=== PATIENT | male | born 1955 | race Caucasian/White ===

== ENCOUNTER 2017-04-30 20:25 | Emergency (ER) | payer OTHER ==
[2017-04-30] MEDS ORDERED: OMEGA 3-6-9 11200 MG (20:34)
[2017-04-30] MEDS ORDERED: LISINOPRIL5 M1 PO (20:34)
--- NOTE | 2017-04-30 20:49 | ED CARDIAC/CP/PALPITATIONS ---
History of Present Illness General Chief Complaint: Chest Pain Stated Complaint: CP Source: patient, old records Exam Limitations: no limitations Vital Signs & Intake/Output Vital Signs & Intake/Output Vital Signs Date Time Temp Pulse Resp B/P B/P Pulse O2 O2 Flow FiO2 Mean Ox Delivery Rate 04/30 2307 97.5 50 29 134/78 98 Room Air Room Air 04/30 2107 Room Air 04/30 2039 97.7 48 20 152/92 99 Room Air ED Intake and Output 05/01 0000 04/30 1200 Intake Total 0 Output Total Balance 0 Intake, Oral 0 Patient 151 lb Weight Allergies Coded Allergies: No Known Allergies (04/30/17) Reconcile Medications Fish Oil/Borage/Flax/Om3,6,9#1 (Wiggins 3-6-9 1,200 MG Softgel) 1,200 MG CAPSULE VITAMIN (Reported) Lisinopril 5 MG TABLET 1 TAB PO DAILY HTN (Reported) Triage Note: PER PT CP SINCE YESTERDAY NO ASSOC SYMPTOMS CONSTANT NO SOB NO NV NO DOIAPRHORESIS 10/18 Triage Nurses Notes Reviewed? yes HPI: Patient presents with substernal pain to his upper chest. The pain has been intermittent since yesterday. Patient states on one stay he was pulling something at home and felt like a muscle pull in the left side of his chest. Patient states that pain slowly resolved but then this new pain started yesterday. The pain comes on and last a few minutes before resolving on its own. There is no radiation. While he has the pain he states that it is a 6 out of 10 but then it goes down to a 0 out of 10. There is no radiation. There are no aggravating or mitigating factors. There is no shortness of breath. Patient states he runs 4 miles a day and wasn't able to run yesterday and today without any difficulty. Patient checked his blood pressure this evening and found out it was high so he became nervous between the high blood pressure and chest pain today comes in for evaluation. Patient is currently asymptomatic. Patient denies any headache or blurry vision. There is no nausea or vomiting. Past History Travel History Traveled to [place] past 21 day No Medical History Any Pertinent Medical History? see below for history Neurological: NONE EENT: NONE Cardiovascular: hypertension Respiratory: NONE Gastrointestinal: NONE Hepatic: NONE Renal: NONE Musculoskeletal: NONE Psychiatric: NONE Endocrine: NONE Surgical History Surgical History: non-contributory Psychosocial History What is your primary language Frisian Tobacco Use: Never used ETOH Use: denies use Illicit Drug Use: marijuana Family History Hx Contributory? No Review of Systems Review of Systems Constitutional: Reports: no symptoms. EENTM: Reports: no symptoms. Respiratory: Reports: no symptoms. Cardiovascular: Reports: see HPI, chest pain. GI: Reports: no symptoms. Genitourinary: Reports: no symptoms. Musculoskeletal: Reports: no symptoms. Skin: Reports: no symptoms. Neurological/Psychological: Reports: no symptoms. Hematologic/Endocrine: Reports: no symptoms. Immunologic/Allergic: Reports: no symptoms. All Other Systems: Reviewed and Negative Physical Exam Physical Exam General Appearance: well developed/nourished, alert, awake, mild distress Head: atraumatic, normal appearance Eyes: Bilateral: PERRL, EOMI. Ears, Nose, Throat: normal pharynx, normal ENT inspection Neck: normal inspection, supple, full range of motion Respiratory: normal breath sounds, chest non-tender, no respiratory distress, lungs clear Cardiovascular: regular rate/rhythm, normal peripheral pulses Gastrointestinal: normal bowel sounds, soft, non-tender, no organomegaly Back: normal inspection, normal range of motion Extremities: normal inspection, normal capillary refill, normal range of motion, no edema Neurologic/Psych: no motor/sensory deficits, awake, alert, oriented x 3, normal mood/affect Skin: intact, normal color, warm/dry Lymphatic: no anterior cervical drew Core Measures ACS in differential dx? Yes CVA/TIA Diagnosis No Sepsis Present: No Sepsis Focused Exam Completed? No Progress Differential Diagnosis: AMI, aortic dissection, costochondritis, musculoskeletal pain, myocarditis, pericarditis, pneumonia, pneumothorax, pulmonary embolism Plan of Care: Orders Procedure Date/time Status TROPONIN LEVEL 04/30 2339 Complete EKG 04/30 2339 Active Telemetry/[employer] 04/30 2049 Active TROPONIN LEVEL 04/30 2049 Complete COMPREHENSIVE METABOLIC PANEL 04/30 2049 Complete CBC WITHOUT DIFFERENTIAL 04/30 2049 Complete EKG 04/30 2026 Active Laboratory Tests 04/30/17 2349: Troponin I < 0.01 04/30/17 2104: Anion Gap 11, Estimated GFR > 60, BUN/Creatinine Ratio 24.4, Glucose 90, Calcium 9.3, Total Bilirubin 0.6, AST 24, ALT 39, Alkaline Phosphatase 89, Troponin I < 0.01, Total Protein 6.5, Albumin 3.9, Globulin 2.6, Albumin/Globulin Ratio 1.5, CBC w Diff NO MAN DIFF REQ, RBC 4.93, MCV 86.4, MCH 28.8, RDW 13.4, MPV 8.9, Gran % 53.4, Lymphocytes % 38.2, Monocytes % 5.6, Eosinophils % 2.3, Basophils % 0.5, Absolute Granulocytes 4.2, Absolute Lymphocytes 3.0, Absolute Monocytes 0.4 , Absolute Eosinophils 0.2, Absolute Basophils 0, PUBS MCHC 33.3 Diagnostic Imaging: Viewed by Me: Radiology Read. Discussed w/RAD: Radiology Read. CXR Impression: PATIENT: DOUG DANIELS V PRESENT AGE: 61 PATIENT ACCOUNT NO: [id number] : 53 LOCATION: [facility] ORDERING PHYSICIAN: Rigo Matias MD SERVICE DATE: 04/30/17 EXAM TYPE: RAD - XRY-PORTABLE CHEST XRAY EXAMINATION: XR PORTABLE CHEST CLINICAL INFORMATION: Chest pain. COMPARISON: None TECHNIQUE: Portable frontal view of the chest was obtained. FINDINGS: No airspace opacities or pleural effusions are seen. The cardiomediastinal silhouette is normal. No acute osseous abnormality is seen. IMPRESSION: Clear lungs. No acute process. DICTATED BY: RIGO LEE MD DATE /TIME DICTATED:04/30/172135 [employer] [employer] DATE/TIME TRANSCRIBED: 04/30/172135 CONFIDENTIAL, DO NOT COPY WITHOUT APPROPRIATE AUTHORIZATION. < Electronically signed in Other Vendor System> SIGNED BY: RIGO LEE MD 04/30/172141 Initial ED EKG: SR WITH J POINT ELEVATION INFERIOR LATERAL, NO ST DEPRESSIONS, NO OLD TO COMAPRE. Rhythm Strip: normal sinus rhythm Departure Departure Disposition: HOME OR SELF CARE Condition: Stable Clinical Impression Primary Impression: Chest pain, unspecified Qualifiers: Chest pain type: other chest pain Qualified Code: R07.89 - Other chest pain Referrals: LINDA MUHAMMAD MD Additional Instructions: SHASHANK PÉRZE WITH DR. MUHAMMAD RETURN IF SYMPTOMS WORSEN OR FOR ANY CONCERNS Departure Forms: Customer Survey General Discharge Information Critical Care Note Critical Care Note Critical Care Time: non-applicable
[2017-04-30 21:12] LABS: ABSOLUTE BASOPHIL COUNT 0 /CUMM (0.0-0.2); ABSOLUTE EOSINOPHIL COUNT 0.2 /CUMM (0.0-0.7); ABSOLUTE GRANULOCYTE CT 4.2 /CUMM (1.4-6.5); ABSOLUTE MONOCYTE COUNT 0.4 /CUMM (0.10-0.60); BASOPHIL % 0.5 % (0.0-2.0); EOSINOPHIL % 2.3 % (0-5); GRANULOCYTE % 53.4 % (42.2-75.2); HEMATOCRIT 42.6 % (42-52); MEAN CORPUSCULAR HGB 28.8 PG (27.0-31.0); MEAN CORPUSCULAR HGB CONC 33.3 G/DL (33.0-37.0); MEAN CORPUSCULAR VOLUME 86.4 FL (80.0-94.0); MEAN PLATELET VOLUME 8.9 FL (7.4-10.4); PLATELET COUNT 223 /CUMM (130-400); RBC DISTRIBUTION WIDTH 13.4 % (11.5-14.5); RED BLOOD CELL CT 4.93 /CUMM (4.70-6.10); WHITE BLOOD CELL COUNT 7.9 /CUMM (4.8-10.8)
--- NOTE | 2017-04-30 21:42 | RADIOLOGY REPORT ---
EXAMINATION: XR PORTABLE CHEST CLINICAL INFORMATION: Chest pain. COMPARISON: None TECHNIQUE: Portable frontal view of the chest was obtained. FINDINGS: No airspace opacities or pleural effusions are seen. The cardiomediastinal silhouette is normal. No acute osseous abnormality is seen. IMPRESSION: Clear lungs. No acute process.
[2017-05-01 00:42] VITALS: BP 141/82
== END 2017-05-01 00:43 ==
LOC: ERH 20:25
PROVIDERS: Emergency Medicine
DX: R07.89 Other chest pain (principal)
CPT/HCPCS: 93005; 93010